=== PATIENT | female | born 1955 | race Native Hawaiian/Other Pacific Islander ===

== ENCOUNTER 2017-02-19 09:32 | Outpatient (CLI) | payer OTHER ==
[~2017-02-19 09:32] MED LIST: AMIT10TA21 PO; ASA LO-DOSE81 MG PO; BIOTIN5000 MCG PO; CLARAVIS20 MG PO; CLON0.5T36 PO; FLUO10CA2 PO; FLUOXETINE20 MG OR; FURO20TA67 PO; FURO40TA93 PO; INSU100I2 SC; INVOKANA100 MG PO; ISOTRETINOIN PO; K-TAB10 MEQ PO; LANTUS100 MG/ML SC; LEVO0.0218 PO; LISINOPRIL2.5 MG OR; METFORMIN1000 MG OR; NOVOLIN SC; NOVOLOG100 MG/ML SC; OLAN5TAB4 PO; POT CHLORIDE10 MEQ PO; POTA20TA4 PO; POTASSIUM25 MEQ PO; SIMV40TA57 PO; SIMVASTATIN40 MG OR; SPIR25TA66 PO; VALS160T PO; [UNRECOGNIZED DRUG - REMARK] OR
[2017-02-19 10:26] LABS: POTASSIUM 4.6 mmol/L (3.6-5.2); SODIUM 136 mmol/L (136-145)
[2017-02-19 10:47] LABS: PLATELET COUNT 254 K/uL (152-353)
== END 2017-02-19 19:12 | disposition home or self-care (01) ==
LOC: LABW 09:32
PROVIDERS: Physician Assistant
DX: E11.9 Type 2 diabetes mellitus without complications (principal); E03.8 Other specified hypothyroidism; I10 Essential (primary) hypertension
CPT/HCPCS: 36415; 80053; 80061; 83036; 84439; 84443; 85027

== ENCOUNTER 2017-06-19 15:48 | Observation (INO) | payer OTHER ==
[~2017-06-19] VITALS: Ht 154.9 cm; Wt 89.6 kg
[2017-06-19 17:33] VITALS: BP 142/71; TEMP 99.4; Ht 154.9 cm; Wt 89.6 kg
[2017-06-19] MEDS ORDERED: INSUINJP SC (18:19)
[2017-06-19] MEDS ORDERED: CELEXA20 MG PO (18:21)
[2017-06-19 19:32] LABS: PLATELET COUNT 260 K/uL (152-353)
[2017-06-19 19:49] LABS: POTASSIUM 4.2 mmol/L (3.6-5.2); SODIUM 133 mmol/L (136-145)
[2017-06-19 19:55] LABS: PARTIAL THROMBOPLASTIN TIME 22.5 SECONDS (24.5-33.6)
[2017-06-19 20:00] VITALS: BP 157/82; TEMP 99
[2017-06-20] VITALS: BP 120/72; TEMP 98.8
[2017-06-20 04:00] VITALS: BP 119/83; TEMP 98.4
[2017-06-20 08:00] VITALS: BP 122/67; TEMP 98.4
[2017-06-20 09:22] LABS: PLATELET COUNT 217 K/uL (152-353)
[2017-06-20 09:58] LABS: POTASSIUM 4.7 mmol/L (3.6-5.2)
[2017-06-20 16:00] VITALS: BP 120/57; TEMP 98.9
--- NOTE | 2017-06-20 17:30 | NUR ---
Pt. TRANSFERRED TO ROOM 1112 VIA W/C. Pt. REQUEST BIGGER ROOM.
[2017-06-20 20:00] VITALS: BP 119/70; TEMP 98.8
[2017-06-21] VITALS: BP 106/65; TEMP 99
[2017-06-21 04:00] VITALS: BP 117/70; TEMP 98.6
[2017-06-21 04:41] LABS: PLATELET COUNT 208 K/uL (152-353)
[2017-06-21 04:48] LABS: POTASSIUM 4.3 mmol/L (3.6-5.2); SODIUM 136 mmol/L (136-145)
[2017-06-21 08:00] VITALS: BP 107/70; TEMP 97.6
[2017-06-21 12:00] VITALS: BP 133/73; TEMP 98.8
--- NOTE | 2017-06-21 15:35 | NUR ---
IV D/C'd. DISCHARGE INSTRUCTIONS SIGNED AND GIVEN. Pt. EXIT OUT OF FRONT ENTRANCE AMBULATING.
== END 2017-06-21 15:35 | disposition home or self-care (01) ==
LOC: MED/SURG 15:48
PROVIDERS: Emergency Medicine; ADMIT Internal Medicine
DX: R07.89 Other chest pain (principal); R00.2 Palpitations; R00.0 Tachycardia, unspecified; E11.9 Type 2 diabetes mellitus without complications
CPT/HCPCS: 36415; 36591; 80048; 80053; 82550; 82948; 83036; 83735; 84443; 84484; 85027; 85610; 85730; 93005; 96372; 99220; G0378; G0379; J1650

== ENCOUNTER 2017-08-19 08:51 | Outpatient (CLI) | payer OTHER ==
[~2017-08-19] VITALS: Ht 154.9 cm; Wt 90.7 kg
[~2017-08-19 08:51] MED LIST changes: +CELEXA20 MG PO; +INSUINJP SC
== END 2017-08-19 19:04 | disposition home or self-care (01) ==
LOC: NM 08:51
DX: R07.89 Other chest pain (principal)
CPT/HCPCS: 93306; A9500; J2785

== ENCOUNTER 2017-11-22 09:52 | Outpatient (CLI) | payer OTHER ==
[2017-11-22 10:26] LABS: PLATELET COUNT 284 K/uL (152-353)
[2017-11-22 10:52] LABS: SODIUM 135 mmol/L (136-145)
== END 2017-11-22 20:21 | disposition home or self-care (01) ==
LOC: LABW 09:52
PROVIDERS: Physician Assistant
DX: E11.9 Type 2 diabetes mellitus without complications (principal); E03.8 Other specified hypothyroidism; I10 Essential (primary) hypertension
CPT/HCPCS: 36415; 80053; 80061; 83036; 84439; 84443; 85027

== ENCOUNTER 2017-11-25 16:31 | Emergency (ER) | payer OTHER ==
[~2017-11-25] VITALS: Ht 154.9 cm; Wt 90.7 kg
[2017-11-25 17:00] VITALS: BP 168/81; TEMP 98.6
[2017-11-25 18:48] LABS: PLATELET COUNT 239 K/uL (152-353)
== END 2017-11-25 19:15 | disposition home or self-care (01) ==
LOC: ED 16:31
DX: R51 Headache (principal); S00.03XA Contusion of scalp, initial encounter
CPT/HCPCS: 36415; 85027; 96373; 99283; J1885

== ENCOUNTER 2017-12-22 13:38 | Outpatient (CLI) | payer OTHER | END 2017-12-22 21:13 | disposition home or self-care (01) | LOC: MAMMO 13:38 | DX: Z12.31 Encounter for screening mammogram for malignant neoplasm of breast (principal) ==

== ENCOUNTER 2018-06-08 07:19 | Outpatient (CLI) | payer OTHER ==
[2018-06-08 08:21] LABS: PLATELET COUNT 228 K/uL (152-353)
[2018-06-08 09:26] LABS: POTASSIUM 3.6 mmol/L (3.6-5.2)
== END 2018-06-08 23:00 | disposition home or self-care (01) ==
LOC: LABW 07:19
PROVIDERS: Physician Assistant
DX: E11.9 Type 2 diabetes mellitus without complications (principal); E03.8 Other specified hypothyroidism; E55.9 Vitamin D deficiency, unspecified
CPT/HCPCS: 36415; 80053; 80061; 82306; 83036; 84439; 84443; 85027

== ENCOUNTER 2018-08-26 15:11 | Outpatient (CLI) | payer OTHER | END 2018-08-26 20:44 | disposition home or self-care (01) | LOC: RAD 15:11 | DX: M54.41 Lumbago with sciatica, right side (principal); M51.36 Other intervertebral disc degeneration, lumbar region | CPT/HCPCS: 96372; J1885 ==

== ENCOUNTER 2018-09-20 18:14 | Emergency (ER) | payer OTHER ==
[~2018-09-20] VITALS: Ht 154.9 cm; Wt 90.7 kg
[2018-09-20 18:25] VITALS: TEMP 97.9
[2018-09-20 20:13] LABS: PLATELET COUNT 208 K/uL (152-353)
[2018-09-20 20:23] LABS: POTASSIUM 4.2 mmol/L (3.6-5.2); SODIUM 137 mmol/L (136-145)
[2018-09-20 21:45] VITALS: BP 160/73
== END 2018-09-20 21:45 | disposition home or self-care (01) ==
LOC: ED 18:14
PROVIDERS: Family Medicine
DX: J18.9 Pneumonia, unspecified organism (principal); R60.9 Edema, unspecified
CPT/HCPCS: 36415; 80053; 81000; 82550; 83880; 84484; 85027; 93005; 96365; 96375; 99284; J1940

== ENCOUNTER 2018-12-08 16:53 | Outpatient (CLI) | payer OTHER | END 2018-12-08 23:35 | disposition home or self-care (01) | LOC: RAD 16:53 | DX: R05 Cough (principal); R06.02 Shortness of breath; R50.9 Fever, unspecified ==

== ENCOUNTER 2018-12-08 17:28 | Emergency (ER) | payer OTHER ==
[~2018-12-08] VITALS: Ht 154.9 cm; Wt 90.7 kg
[2018-12-08 19:23] LABS: PLATELET COUNT 317 K/uL (152-353)
[2018-12-08 19:39] LABS: POTASSIUM 4.2 mmol/L (3.6-5.2)
[2018-12-08 21:37] VITALS: BP 138/73; TEMP 97.7
== END 2018-12-08 21:40 | disposition home or self-care (01) ==
LOC: ED 17:28
PROVIDERS: Family Medicine
DX: J40 Bronchitis, not specified as acute or chronic (principal); Z79.899 Other long term (current) drug therapy
CPT/HCPCS: 36415; 80053; 81000; 85027; 87088; 94664; 96372; 99283; J0696

== ENCOUNTER 2019-01-11 09:37 | Inpatient (IN) | payer OTHER ==
[2019-01-11] VITALS (7 sets, daily range): BP systolic 118–144; BP diastolic 56–69; TEMP 98.2–98.9; Ht 167.6 cm; Wt 90.0 kg
[~2019-01-11] VITALS: Ht 167.6 cm; Wt 90.0 kg
[2019-01-11 10:15] LABS: PLATELET COUNT 252 K/uL (152-353)
[2019-01-11 10:39] LABS: POTASSIUM 4.1 mmol/L (3.6-5.2)
[2019-01-11 16:03] LABS: PARTIAL THROMBOPLASTIN TIME 23.8 SECONDS (24.5-33.6)
[2019-01-12] VITALS (12 sets, daily range): BP systolic 97–148; BP diastolic 44–73; TEMP 98.6–99.4
[2019-01-12 06:38] LABS: PLATELET COUNT 220 K/uL (152-353)
[2019-01-12 06:56] LABS: POTASSIUM 4.2 mmol/L (3.6-5.2)
[2019-01-13] VITALS: BP 126/75; TEMP 98.6
[2019-01-13 04:00] VITALS: BP 118/64; TEMP 98.4
[2019-01-13 05:49] LABS: PLATELET COUNT 232 K/uL (152-353)
[2019-01-13 06:26] LABS: POTASSIUM 4.4 mmol/L (3.6-5.2)
[2019-01-13 08:00] VITALS: BP 108/68; TEMP 98.3
[2019-01-13 12:00] VITALS: BP 113/80; TEMP 98.6
[2019-01-13 18:16] VITALS: BP 130/70; TEMP 99.1
[2019-01-13 20:52] VITALS: BP 126/7; TEMP 98.3
[2019-01-14] VITALS: BP 96/67; TEMP 98.7
[2019-01-14 04:15] VITALS: BP 110/57; TEMP 98.8
[2019-01-14 05:34] LABS: PLATELET COUNT 252 K/uL (152-353)
[2019-01-14 05:56] LABS: POTASSIUM 4.2 mmol/L (3.6-5.2)
[2019-01-14 08:00] VITALS: BP 127/65; TEMP 98.3
[2019-01-14 12:00] VITALS: BP 119/86; TEMP 98.7
[2019-01-14 16:00] VITALS: BP 109/69; TEMP 98.9
[2019-01-14 20:07] VITALS: BP 105/67; TEMP 99.6
[2019-01-15] VITALS: BP 131/71; TEMP 98.3
[2019-01-15 04:00] VITALS: BP 101/53; TEMP 98.1
[2019-01-15 04:20] LABS: POTASSIUM 4.8 mmol/L (3.6-5.2)
[2019-01-15 08:00] VITALS: BP 126/74; TEMP 98.2
[2019-01-15 12:00] VITALS: BP 121/77; TEMP 98.5
[2019-01-15 16:00] VITALS: BP 92/39; TEMP 97.8
[2019-01-15 20:00] VITALS: BP 135/72; TEMP 98.7
[2019-01-16] VITALS: BP 113/66; TEMP 98.6
[2019-01-16 04:00] VITALS: BP 128/61; TEMP 98.4
[2019-01-16 07:27] LABS: PLATELET COUNT 250 K/uL (152-353)
[2019-01-16 07:51] LABS: POTASSIUM 3.6 mmol/L (3.6-5.2)
[2019-01-16 08:06] VITALS: BP 122/62; TEMP 98.3
== END 2019-01-16 09:45 | disposition home or self-care (01) | DRG 176 ==
LOC: CT 09:37 → ICU 12:10 → MED/SURG 01-12 10:39
PROVIDERS: ADMIT Internal Medicine
DX: I26.99 Other pulmonary embolism without acute cor pulmonale (principal); F41.0 Panic disorder [episodic paroxysmal anxiety]; M15.8 Other polyosteoarthritis; E03.8 Other specified hypothyroidism; G25.81 Restless legs syndrome; K21.9 Gastro-esophageal reflux disease without esophagitis; E78.00 Pure hypercholesterolemia, unspecified; E11.42 Type 2 diabetes mellitus with diabetic polyneuropathy; E11.22 Type 2 diabetes mellitus with diabetic chronic kidney disease; N18.2 Chronic kidney disease, stage 2 (mild); I13.10 Hypertensive heart and chronic kidney disease without heart failure, with stage 1 through stage 4 chronic kidney disease, or unspecified chronic kidney disease
CPT/HCPCS: 36415; 80053; 80061; 81000; 81241; 82043; 82550; 82570; 83036; 83880; 84439; 84443; 84484; 85027; 85300; 85307; 85379; 85610; 85613; 85651; 85730; 86038; 86162; 93005; J1650; J1815; J2405; Q9963

== ENCOUNTER 2019-01-15 09:30 | Outpatient (CLI) | payer OTHER | END 2019-01-15 09:51 | disposition short-term general hospital (02) | LOC: AMB 09:30 | DX: I26.99 Other pulmonary embolism without acute cor pulmonale (principal); F41.0 Panic disorder [episodic paroxysmal anxiety]; M15.8 Other polyosteoarthritis; E03.8 Other specified hypothyroidism; G25.81 Restless legs syndrome; K21.9 Gastro-esophageal reflux disease without esophagitis; E78.00 Pure hypercholesterolemia, unspecified; E11.42 Type 2 diabetes mellitus with diabetic polyneuropathy; E11.22 Type 2 diabetes mellitus with diabetic chronic kidney disease; N18.2 Chronic kidney disease, stage 2 (mild); I13.10 Hypertensive heart and chronic kidney disease without heart failure, with stage 1 through stage 4 chronic kidney disease, or unspecified chronic kidney disease | CPT/HCPCS: A0425; A0426 ==

== ENCOUNTER 2019-01-23 08:04 | Outpatient (CLI) | payer OTHER ==
[2019-01-23 08:22] LABS: PLATELET COUNT 303 K/uL (152-353)
[2019-01-23 08:31] LABS: POTASSIUM 4.2 mmol/L (3.6-5.2)
== END 2019-01-23 22:17 | disposition home or self-care (01) ==
LOC: LABW 08:04
PROVIDERS: Internal Medicine
DX: I26.99 Other pulmonary embolism without acute cor pulmonale (principal)
CPT/HCPCS: 36415; 80053; 85027

== ENCOUNTER 2019-02-24 00:52 | Emergency (ER) | payer OTHER ==
[~2019-02-24] VITALS: Ht 167.6 cm; Wt 89.8 kg
[2019-02-24] MEDS ORDERED: ELIQUIS5 MG PO (01:09)
[2019-02-24 01:26] LABS: PLATELET COUNT 291 K/uL (152-353)
[2019-02-24 01:33] LABS: POTASSIUM 3.3 mmol/L (3.6-5.2); SODIUM 139 mmol/L (136-145)
[2019-02-24 05:05] VITALS: BP 149/65; TEMP 100
== END 2019-02-24 05:20 | disposition short-term general hospital (02) ==
LOC: ED 00:52
PROVIDERS: Family Medicine
DX: M54.89 Other dorsalgia (principal); R07.89 Other chest pain; E87.6 Hypokalemia; R00.0 Tachycardia, unspecified; I48.91 Unspecified atrial fibrillation
CPT/HCPCS: 36415; 80053; 81000; 82550; 84484; 85027; 85379; 93005; 96361; 96365; 96366; 96375; 99284; J2270; J2405; J2550; J3490

== ENCOUNTER 2019-05-17 14:48 | Outpatient (CLI) | payer OTHER ==
[~2019-05-17 14:48] MED LIST changes: +ELIQUIS5 MG PO
== END 2019-05-17 23:28 | disposition home or self-care (01) ==
LOC: RAD 14:48
DX: R06.02 Shortness of breath (principal); Z86.711 Personal history of pulmonary embolism
CPT/HCPCS: 36415; 82565; 84520; Q9963

== ENCOUNTER 2019-08-17 14:15 | Outpatient (CLI) | payer OTHER | END 2019-08-17 19:43 | disposition home or self-care (01) | LOC: MAMMO 14:15 | DX: Z12.31 Encounter for screening mammogram for malignant neoplasm of breast (principal) ==

== ENCOUNTER 2019-10-25 11:57 | Outpatient (CLI) | payer OTHER ==
[2019-10-25 12:24] LABS: POTASSIUM 4.2 mmol/L (3.6-5.2)
[2019-10-25 12:26] LABS: PLATELET COUNT 285 K/uL (152-353)
== END 2019-10-25 20:50 | disposition home or self-care (01) ==
LOC: LABW 11:57
PROVIDERS: Physician Assistant
DX: E11.9 Type 2 diabetes mellitus without complications (principal); I11.0 Hypertensive heart disease with heart failure; I50.9 Heart failure, unspecified
CPT/HCPCS: 36415; 80053; 85027

== ENCOUNTER 2020-01-10 16:06 | Outpatient (CLI) | payer OTHER | END 2020-01-10 21:31 | disposition home or self-care (01) | LOC: RAD 16:06 | DX: M54.6 Pain in thoracic spine (principal); R09.1 Pleurisy; M79.604 Pain in right leg ==

== ENCOUNTER 2020-02-16 08:35 | Outpatient (CLI) | payer OTHER ==
[2020-02-16 08:58] LABS: PLATELET COUNT 303 K/uL (152-353); POTASSIUM 3.6 mmol/L (3.6-5.2)
== END 2020-02-16 19:23 | disposition home or self-care (01) ==
LOC: LABW 08:35
PROVIDERS: Internal Medicine
DX: R10.84 Generalized abdominal pain (principal)
CPT/HCPCS: 36415; 80053; 81000; 85027

== ENCOUNTER 2020-07-27 09:12 | Outpatient (CLI) | payer OTHER | END 2020-07-27 21:48 | disposition home or self-care (01) | LOC: LAB 09:12 | DX: U07.1 COVID-19 (principal); Z20.828 Contact with and (suspected) exposure to other viral communicable diseases | CPT/HCPCS: 87635; G2023; U0003 ==

== ENCOUNTER 2020-08-02 15:29 | Emergency (ER) | payer OTHER ==
[~2020-08-02] VITALS: Ht 154.9 cm; Wt 89.8 kg
[2020-08-02 16:00] VITALS: TEMP 98.3
[2020-08-02 17:27] LABS: PLATELET COUNT 215 K/uL (152-353)
[2020-08-02 17:36] LABS: POTASSIUM 3.8 mmol/L (3.6-5.2)
[2020-08-02 19:00] VITALS: BP 139/75
== END 2020-08-02 19:20 | disposition home or self-care (01) ==
LOC: ED 15:29
PROVIDERS: Emergency Medicine
DX: U07.1 COVID-19 (principal)
CPT/HCPCS: 36600; 80053; 82805; 83605; 85027; 85379; 87040; 87502; 87651; 93005; 96360; 99284